=== PATIENT | male | born 1995 | race Caucasian/White ===

== ENCOUNTER 2016-09-06 17:51 | Emergency (ER) | payer OTHER ==
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
[~2016-09-06 17:51] MED LIST: DICLOFENAC PO; FLONASE 0.05% N16 GM; NO MEDICATIONS; SUDAFED PO
[2016-09-17] MEDS ORDERED: AMOXICILLIN PO (21:05)
[2016-09-17] MEDS ORDERED: MOTRIN600 M1 PO (21:05)
== END 2016-09-06 18:51 | disposition home or self-care (01) ==
LOC: SED 17:51
DX: S00.83XA Contusion of other part of head, initial encounter (principal); J01.90 Acute sinusitis, unspecified; F32.9 Major depressive disorder, single episode, unspecified; F17.200 Nicotine dependence, unspecified, uncomplicated; Y04.0XXA Assault by unarmed brawl or fight, initial encounter; Y92.89 Other specified places as the place of occurrence of the external cause
CPT/HCPCS: 70450; 70486; 72125; 99284

== ENCOUNTER 2016-09-17 21:52 | Emergency (ER) | payer OTHER ==
[~2016-09-17 21:52] MED LIST changes: +AMOXICILLIN PO; +MOTRIN600 M1 PO
== END 2016-09-18 02:48 | disposition hospice, home (50) ==
LOC: SED 21:52
DX: R68.84 Jaw pain (principal); F17.200 Nicotine dependence, unspecified, uncomplicated
CPT/HCPCS: 36415; 96361; 96374; 96375; 96376; 99285; J1170; J2405